=== PATIENT | male | born 1990 | race Caucasian/White ===

== ENCOUNTER 2018-04-23 19:22 | Emergency (ER) | payer MEDICAID ==
[~2018-04-23] VITALS: Ht 182.9 cm; Wt 90.9 kg
[2018-04-23 19:37] VITALS: Ht 182.9 cm; Wt 90.9 kg
[2018-04-23 20:03] LABS: BASOPHILS 0.2 % (0-2); EOSINOPHILS 1.3 % (0-7); HEMOGLOBIN 14.1 g/dL (13.5-17.5); IMMATURE GRANULOCYTES 0.2 % (0-5); LYMPHOCYTES 20.1 % (15-50); MCH 31.4 pg (26.0-34.0); MCHC 34.4 g/dL (31.0-37.0); MCV 91.3 fL (80.0-100.0); MEAN PLATELET VOLUME 9.7 fL (7.4-10.4); MONOCYTES 8.5 % (2-11); NEUTROPHILS 69.7 % (40-80); PLATELET COUNT 323 10x3/uL (130-400); RBC 4.49 10x6/uL (4.20-6.10); RDW 13.4 % (11.5-14.5); WBC 11.9 10x3/uL (4.8-10.8)
[2018-04-23 20:21] LABS: ALBUMIN 3.9 g/dL (3.4-5.0); ALKALINE PHOSPHATASE 69 U/L (46-116); ALT (SGPT) 55 U/L (10-68); BILIRUBIN - TOTAL 0.17 mg/dL (0.2-1.3); CALC OSMOLALITY 286 mosm/kg (275-300); CALCIUM 9.4 mg/dL (8.5-10.1); CARBON DIOXIDE 29.2 mmol/L (21.0-32.0); CHLORIDE - SERUM 104 mmol/L (98-107); CREATININE - SERUM 1.2 mg/dL (0.6-1.3); GLUCOSE 94 mg/dL (74-106); POTASSIUM - SERUM 3.9 mmol/L (3.5-5.1); PROTEIN - SERUM 7.8 g/dL (6.4-8.2); SODIUM 142 mmol/L (136-145); UREA NITROGEN 23 mg/dL (7-18); eGFR NON AFRICAN AMERICAN 77 mL/min (90-120)
[2018-04-23 20:23] LABS: UDS - AMPHET NEGATIVE QUAL (NEGATIVE); UDS - BARB NEGATIVE QUAL (NEGATIVE); UDS - BENZO NEGATIVE QUAL (NEGATIVE); UDS - COCAINE NEGATIVE QUAL (NEGATIVE); UDS - OPIATE NEGATIVE QUAL (NEGATIVE); UDS - PCP NEGATIVE QUAL (NEGATIVE); UDS - THC NEGATIVE QUAL (NEGATIVE)
[2018-04-23 20:36] LABS: APPEARANCE CLEAR (CLEAR); BILIRUBIN NEGATIVE (NEGATIVE); COLOR YELLOW (YELLOW); GLUCOSE NEGATIVE (NEGATIVE); KETONE NEGATIVE (NEGATIVE); NITRITE NEGATIVE (NEGATIVE); PROTEIN NEGATIVE (NEGATIVE); SPECIFIC GRAVITY 1.015 (1.005-1.020); UROBILINOGEN NORMAL (NORMAL)
[2018-04-23 20:38] LABS: UDS - AMPHET NEGATIVE QUAL (NEGATIVE); UDS - BARB NEGATIVE QUAL (NEGATIVE); UDS - BENZO NEGATIVE QUAL (NEGATIVE); UDS - COCAINE NEGATIVE QUAL (NEGATIVE); UDS - OPIATE NEGATIVE QUAL (NEGATIVE); UDS - PCP NEGATIVE QUAL (NEGATIVE); UDS - THC NEGATIVE QUAL (NEGATIVE)
[2018-04-23 20:41] VITALS: BP 145/67
[2018-04-23 21:04] LABS: INR 0.85 (0.85-1.17); PROTIME 11.1 SECONDS (11.6-15.0)
[2018-04-23 21:06] LABS: APTT 30.7 SECONDS (22.8-39.4)
[2018-04-24] MEDS ORDERED: BENZOTROPINE (03:44)
[2018-04-24] MEDS ORDERED: TRAZODONE HCL100 MG PO (03:44)
[2018-04-24] MEDS ORDERED: CELEXA10 MG PO (03:45)
== END 2018-04-23 20:41 | disposition home or self-care (01) ==
LOC: D.ER 19:22
PROVIDERS: Family Medicine
DX: T60.4X2A Toxic effect of rodenticides, intentional self-harm, initial encounter (principal); Y92.019 Unspecified place in single-family (private) house as the place of occurrence of the external cause; F17.200 Nicotine dependence, unspecified, uncomplicated

== ENCOUNTER 2018-04-24 01:59 | Emergency (ER) | payer MEDICAID ==
[~2018-04-24] VITALS: Ht 182.9 cm; Wt 102.3 kg
[2018-04-24 02:04] VITALS: Ht 182.9 cm; Wt 102.3 kg
[2018-04-24 02:23] LABS: BASOPHILS 0.3 % (0-2); EOSINOPHILS 0.3 % (0-7); HEMATOCRIT 41.2 % (42.0-54.0); HEMOGLOBIN 14.3 g/dL (13.5-17.5); IMMATURE GRANULOCYTES 0.3 % (0-5); LYMPHOCYTES 16.2 % (15-50); MCH 31.6 pg (26.0-34.0); MCHC 34.7 g/dL (31.0-37.0); MCV 90.9 fL (80.0-100.0); MEAN PLATELET VOLUME 9.2 fL (7.4-10.4); NEUTROPHILS 72.9 % (40-80); PLATELET COUNT 293 10x3/uL (130-400); RBC 4.53 10x6/uL (4.20-6.10); RDW 13.4 % (11.5-14.5); WBC 10.7 10x3/uL (4.8-10.8)
[2018-04-24 02:43] LABS: ALBUMIN 3.9 g/dL (3.4-5.0); ALKALINE PHOSPHATASE 66 U/L (46-116); ALT (SGPT) 56 U/L (10-68); BILIRUBIN - TOTAL 0.31 mg/dL (0.2-1.3); CALC OSMOLALITY 283 mosm/kg (275-300); CALCIUM 9.3 mg/dL (8.5-10.1); CARBON DIOXIDE 29.4 mmol/L (21.0-32.0); CHLORIDE - SERUM 102 mmol/L (98-107); CREATININE - SERUM 1.1 mg/dL (0.6-1.3); GLUCOSE 96 mg/dL (74-106); PROTEIN - SERUM 7.7 g/dL (6.4-8.2); SODIUM 141 mmol/L (136-145); UREA NITROGEN 20 mg/dL (7-18); eGFR NON AFRICAN AMERICAN 85 mL/min (90-120)
[2018-04-24 03:12] LABS: LIPASE 159 U/L (73-393); MAGNESIUM - SERUM 2.2 mg/dL (1.8-2.4); THYROID STIMULATING HORMONE 1.31 uIU/mL (0.36-3.74)
[2018-04-24 03:26] LABS: CKMB 7.8 U/L (0.0-3.6); CREATINE KINASE 3175 UL (21-232)
[2018-04-24] MEDS ORDERED: TRAZODONE HCL100 MG PO (03:44)
[2018-04-24] MEDS ORDERED: BENZOTROPINE (03:44)
[2018-04-24] MEDS ORDERED: CELEXA10 MG PO (03:45)
[2018-04-24 03:48] LABS: TROPONIN-I < 0.017 ng/mL (0.000-0.060)
[2018-04-24 04:16] VITALS: BP 132/78
[2018-04-24 07:19] LABS: APTT 32.2 SECONDS (22.8-39.4); INR 0.9 (0.85-1.17); PROTIME 9.5 SECONDS (11.6-15.0)
== END 2018-04-24 05:44 ==
LOC: D.ER 01:59
PROVIDERS: Family Medicine
DX: R45.851 Suicidal ideations (principal)